=== PATIENT | female | born 1970 | race Caucasian/White ===

== ENCOUNTER → 2017-05-06 | Outpatient (CLI) | payer BC ==
[~2017-05-06] MED LIST: B COMPLEX1 TA2 PO; CALCIFEROL50000 IU PO; CALCIUM + D 5001 TAB PO; CETIRIZINE PO; CLARITIN 1010 MG/TAB PO; CLARITIN PO; Calcium PO; DAILY VITAMINS1 TAB PO; DHA PO; FLAX PO; GLUCOPHAGE1000 MG PO; GLUCOPHAGE500 MG/TAB PO; LISINOPRIL10 MG PO; METFORMIN500 MG PO; MUCINEX PO; PHENTERMINE15 MG PO; PRINIVIL5 MG PO; SUPER EPA 1201200 MG PO
== END ==
LOC: MC.RAD 07:55
DX: Z12.31 Encounter for screening mammogram for malignant neoplasm of breast (principal)

== ENCOUNTER 2018-05-25 16:15 | Outpatient (RCR) | payer BC | END 2018-06-09 14:48 | disposition home or self-care (01) | LOC: WSOT 16:15 | DX: M65.4 Radial styloid tenosynovitis [de Quervain] (principal) ==

== ENCOUNTER → 2018-06-05 | Outpatient (CLI) | payer BC | LOC: MC.RAD 11:13 | DX: Z12.31 Encounter for screening mammogram for malignant neoplasm of breast (principal) ==

== ENCOUNTER → 2019-07-06 | Outpatient (CLI) | payer BC ==
[~2019-07-06] MED LIST changes: -DAILY VITAMINS1 TAB PO; +FARXIGA10 PO; +MULTI VITAMINS1 TAB PO; +PRINIVIL10 MG PO; -PRINIVIL5 MG PO; +PROAIR HFA0.09 MG/AC IH
== END ==
LOC: MC.RAD 10:59
DX: Z12.31 Encounter for screening mammogram for malignant neoplasm of breast (principal)

== ENCOUNTER 2019-07-09 06:28 | Day surgery (SDC) | payer BC ==
[~2019-07-09] VITALS: Ht 165.1 cm; Wt 134.0 kg
[~2019-07-09 06:28] MED LIST changes: -FARXIGA10 PO; -PROAIR HFA0.09 MG/AC IH
[2019-07-09] MEDS ORDERED: FARXIGA10 PO (07:05)
[2019-07-09] MEDS ORDERED: PROAIR HFA0.09 MG/AC IH (07:06)
[2019-07-09 07:37] VITALS: BP 133/76; PULSE 84; TEMP 98.4
[2019-07-09 08:25] VITALS: BP 111/69; PULSE 83
--- NOTE | 2019-07-09 08:25 | NUR ---
Patient brought back to [facility] from colonoscopy. Alert and oriented, ambulated to chair without difficulty, steady. Vital signs stable. Patient requesting water and apple sauce at this time. Denies any pain or nausea, will continue to monitor.
[2019-07-09 08:40] VITALS: BP 116/69; PULSE 82
--- NOTE | 2019-07-09 08:40 | NUR ---
Patient tolerating food and drink without difficulty. Patient requesting more water at this time. Vital signs stable. Will continue to monitor.
[2019-07-09 08:55] VITALS: BP 127/83; PULSE 66
--- NOTE | 2019-07-09 08:55 | NUR ---
Patient states she is feeling well and ready to go home. Awaiting physician to speak with patient at this time. Will continue to monitor.
--- NOTE | 2019-07-09 09:15 | NUR ---
Discharge instructions reviewed with patient and mother, verbalized understanding, all questions answered. Patient to get dressed at this time.
--- NOTE | 2019-07-09 09:19 | NUR ---
Patient brought down to lobby via wheel chair. To be driven home by Mother Gia.
== END 2019-07-09 09:19 | disposition home or self-care (01) ==
LOC: SDCO 06:28
DX: Z12.11 Encounter for screening for malignant neoplasm of colon (principal); K63.5 Polyp of colon; K57.30 Diverticulosis of large intestine without perforation or abscess without bleeding; I10 Essential (primary) hypertension; J45.909 Unspecified asthma, uncomplicated; G47.33 Obstructive sleep apnea (adult) (pediatric); E11.9 Type 2 diabetes mellitus without complications; Z80.0 Family history of malignant neoplasm of digestive organs; Z79.84 Long term (current) use of oral hypoglycemic drugs
CPT/HCPCS: J2704; J7120

== ENCOUNTER → 2020-07-11 | Outpatient (CLI) | payer BC ==
[~2020-07-11] MED LIST changes: +FARXIGA10 PO; +PROAIR HFA0.09 MG/AC IH
== END ==
LOC: MC.RAD 07:30
DX: Z12.31 Encounter for screening mammogram for malignant neoplasm of breast (principal)

== ENCOUNTER → 2021-07-24 | Outpatient (CLI) | payer BC | LOC: MC.RAD 08:10 | DX: Z12.31 Encounter for screening mammogram for malignant neoplasm of breast (principal) ==

== ENCOUNTER → 2021-08-29 | Outpatient (CLI) | payer BC | LOC: COL.RAD 12:19 | DX: E04.9 Nontoxic goiter, unspecified (principal) ==

== ENCOUNTER → 2021-09-14 | Outpatient (CLI) | payer BC ==
[~2021-09-14] VITALS: Ht 165.1 cm; Wt 131.0 kg
[2021-09-14 09:57] VITALS: BP 130/84; PULSE 83; TEMP 97.3
== END ==
LOC: COL.RAD 09:37
DX: E04.1 Nontoxic single thyroid nodule (principal)
CPT/HCPCS: 32106

== ENCOUNTER 2022-02-05 08:34 | Outpatient (RCR) | payer BC | END 2022-02-21 | disposition still patient (30) | LOC: WSPT | DX: R10.11 Right upper quadrant pain (principal) ==

== ENCOUNTER 2022-05-17 06:35 | Day surgery (SDC) | payer BC ==
[~2022-05-17] VITALS: Ht 165.1 cm; Wt 125.9 kg
[~2022-05-17 06:35] MED LIST changes: -CALCIUM + D 5001 TAB PO; +CALCIUM 600MG+D1 TAB PO
[2022-05-17] MEDS ORDERED: PROBIOTIC BLEN1 EACH PO (07:00)
[2022-05-17] MEDS ORDERED: VITAMIN B COMPL1 SGL PO (07:00)
[2022-05-17 07:01] VITALS: BP 146/89; PULSE 75; TEMP 97
[2022-05-17 08:15] VITALS: BP 117/70; PULSE 76; TEMP 97.3
--- NOTE | 2022-05-17 08:15 | NUR ---
PATIENT ARRIVES TO ROOM 5 VIA CART. ASSIST TO CHAIR X 1. SHE REQUESTS COFFEE AND TOAST. DENIES ANY PAIN OR NAUSEA. VITAL SIGNS WNL. WILL CONTINUE TO MONITOR.
[2022-05-17 08:30] VITALS: BP 120/83; PULSE 72
--- NOTE | 2022-05-17 08:30 | NUR ---
PATIENT IS AWAKE AND ORIENTED. VITAL SIGNS WNL. DENIES ANY NAUSEA OR PAIN. IV DISCONTINUED. WILL CONTINUE TO MONITOR.
[2022-05-17 08:45] VITALS: BP 116/72; PULSE 71
--- NOTE | 2022-05-17 08:45 | NUR ---
PATIENT IS READY FOR DISCHARGE. VITAL SIGNS WNL. DISCHARGE INSTRUCTIONS REVIEWED. WILL DISCHARGE WHEN SHE IS DRESSED. RIDE IS ON THE WAY.
== END 2022-05-17 08:49 | disposition home or self-care (01) ==
LOC: SDCO 06:35
DX: Z12.11 Encounter for screening for malignant neoplasm of colon (principal); Z86.010 Personal history of colon polyps; Z80.0 Family history of malignant neoplasm of digestive organs; R19.7 Diarrhea, unspecified; Z79.899 Other long term (current) drug therapy; E66.9 Obesity, unspecified
CPT/HCPCS: J2704; J7120

== ENCOUNTER → 2022-08-13 | Outpatient (CLI) | payer BC ==
[~2022-08-13] MED LIST changes: +PROBIOTIC BLEN1 EACH PO; +VITAMIN B COMPL1 SGL PO
== END ==
LOC: MC.RAD 07:49
DX: Z12.31 Encounter for screening mammogram for malignant neoplasm of breast (principal)

== ENCOUNTER → 2024-08-19 | Outpatient (CLI) | payer BC ==
[~2024-08-19] MED LIST changes: +NORCO 325 MG-51 TAB PO
== END ==
LOC: MC.RAD 08:19
DX: Z12.31 Encounter for screening mammogram for malignant neoplasm of breast (principal)